=== PATIENT | male | born 1965 | race Two or more races ===

== ENCOUNTER 2019-07-06 00:16 | Emergency (ER) | payer BC, OTHER ==
[~2019-07-06] VITALS: Ht 175.3 cm; Wt 116.1 kg
[2019-07-06 03:42] VITALS: BP 145/94
[2019-07-06] MEDS ORDERED: DexAMETHasone SOD PHOS 10MG/1ML VIAL INJ IM ONE (03:45)
[2019-07-06] MEDS ORDERED: cefTRIAXone SOD 1,000 MG VL IM ONE (03:45)
[2019-07-06] MEDS ORDERED: HYDROcodone-ACET 10/325MG TAB PO ONE (03:45)
== END 2019-07-06 05:19 | disposition home or self-care (01) ==
LOC: ER 00:16
DX: K04.7 Periapical abscess without sinus (principal)
CPT/HCPCS: 41800; 96372; 99283; J0696; J1100